=== PATIENT | male | born 1985 | race Caucasian/White ===

== ENCOUNTER → 2018-03-23 | Outpatient (CLI) | payer OTHER ==
[~2018-03-23] MED LIST: CONRAY-43 43% 50ML VIAL (Q9960) As Ordered; PROHANCE 279.3MG/ML 5ML VIAL (A9576) As Ordered
== END ==
LOC: M RADPRO 06:29
DX: S46.012A Strain of muscle(s) and tendon(s) of the rotator cuff of left shoulder, initial encounter (principal); Y92.89 Other specified places as the place of occurrence of the external cause; Y93.89 Activity, other specified; Y99.8 Other external cause status; X58.XXXA Exposure to other specified factors, initial encounter
CPT/HCPCS: 23350

== ENCOUNTER 2020-11-23 09:43 | Emergency (ER) | payer OTHER ==
[~2020-11-23] VITALS: Ht 182.9 cm; Wt 81.5 kg
--- OUTSIDE RECORDS SUMMARY | 2020-11-23 09:47 | CCD ---
Author Author [facility] Address Unknown Phone Unavailable Support Name Relationship Address Phone [facility] [address] Next Of Kin [address] [place] [address] UNYOSELIN JAYWN Next Of Kin [address] [place] [address] Re-disclosure Warning The records that you are about to access may contain information from federally-assisted alcohol or drug abuse programs. If such information is present, then the following federally mandated warning applies: This information has been disclosed to you from records protected by federal confidentiality rules (42 CFR part 2). The federal rules prohibit you from making any further disclosure of this information unless further disclosure is expressly permitted by the written consent of the person to whom it pertains or as otherwise permitted by 42 CFR part 2. A general authorization for the release of medical or other information is NOT sufficient for this purpose. The Federal rules restrict any use of the information to criminally investigate or prosecute any alcohol or drug abuse patient.The records that you are about to access may contain highly sensitive health information, the redisclosure of which is protected by Article 27-F of the [facility] Public Health law. If you continue you may have access to information: Regarding HIV / AIDS; Provided by facilities licensed or operated by the [facility] Office of Mental Health; or Provided by the [facility] Office for People With Developmental Disabilities. If such information is present, then the following [facility] mandated warning applies: This information has been disclosed to you from confidential records which are protected by state law. State law prohibits you from making any further disclosure of this information without the specific written consent of the person to whom it pertains, or as otherwise permitted by law. Any unauthorized further disclosure in violation of state law may result in a fine or chcf sentence or both. A general authorization for the release of medical or other information is NOT sufficient authorization for further disc losure. Insurance Providers Payer name Policy type / Coverage type Policy ID Covered democrat ID Covered democrat's relationship to cox Policy [employer] Plan Information [employer] [id number] SP [id number] [employer] - O/P [id number] [facility] [id number] [employer] [id number]
--- OUTSIDE RECORDS SUMMARY | 2020-11-23 10:31 | CCD ---
Author Author [facility] Organization [facility] Address Unknown Phone Unavailable Support Name Relationship Address Phone [facility] Next Of Kin [address] [place] [address] Unavailable [facility] [address] Next Of Kin [address] [place] [address] UNDUSTIN JAY Next Of Kin [address] [place] [address] Re-disclosure Warning The records that [...] is protected by Article 27-F of the [facility] Public Health law. If you continue you may have access to information: Regarding HIV / AIDS; Provided by facilities licensed or operated by the [facility] Office of Mental Health; or Provided by the [facility] Office for People With Developmental Disabilities. If such information is present, then the following [facility] mandated warning applies: This information has been [...] law may result in a fine or long-term sentence or both. A general authorization for the release of medical or other information is NOT sufficient authorization for further disc losure. Insurance Providers Payer name Policy type / Coverage type Policy ID Covered green party ID Covered green party's relationship to cox Policy [employer] Plan Information [employer] [id number] SP [id number] [facility] HU[employer] - O/P [id number] 18 [id number] [facility] [id number] SP [id number] [employer] [id number] SP [id number]
--- NOTE | 2020-11-23 10:38 | REP ---
INDICATION: fall from ladder, laceration bony tenderness. COMPARISON: None. TECHNIQUE: Four views FINDINGS: The olecranon, proximal ulna, radial head and proximal radius, distal humerus and its articular aspects were all unremarkable. No definite joint effusion. No radiopaque foreign body or subcutaneous emphysema. I see no abnormal soft tissue calcification. IMPRESSION: No fracture, joint effusion, avulsion, abnormal soft tissue calcification, radiopaque foreign body or other acute abnormality. <Electronically signed by Quentin Velazquez > 11/23/20 1031
[2020-11-23] MEDS ORDERED: LIDOCAINE 2% MDV 20ML VIAL SC ONE (10:45)
[2020-11-23 11:43] VITALS: BP 122/69
== END 2020-11-23 11:48 | disposition home or self-care (01) ==
LOC: M ED 09:43
DX: S51.011A Laceration without foreign body of right elbow, initial encounter (principal); W11.XXXA Fall on and from ladder, initial encounter; Y92.018 Other place in single-family (private) house as the place of occurrence of the external cause